=== PATIENT | female | born 2000 | race Hispanic/Latino ===

== ENCOUNTER 2023-01-09 09:28 | Outpatient (CLI) | payer BC, SELFPAY ==
--- NOTE | 2023-01-09 | ECG_ITS ---
Measurements Intervals [place] Rate: 78 P: 50 MT: 149 QRS: 101 QRSD: 88 T: 29 QT: 388 QTc: 443 Interpretive Statements SINUS RHYTHM RIGHT AXIS DEVIATION MINIMAL Q WAVES- INFERIOR LEADS BORDERLINE ECG NO PREVIOUS ECG AVAILABLE FOR COMPARISON Electronically Signed On 01-09-2023 12:06:41 CDT by Usman New D.O.
[2023-01-09 10:02] LABS: Basophils Percent Auto 0.6 % (0.2-1.2); Eosinophils Absolute Auto 0.1 K/mm3 (0-0.3); Eosinophils Percent Auto 1.4 % (0-4.4); Hematocrit 43.5 % (37.0-47.0); Hemoglobin 14.3 g/dL (12.0-15.0); Immature Granulocyte Absolute 0.01 K/mm3 (0.00-0.031); Immature Granulocyte Percent A 0.2 % (0-0.5); Lymphocytes Absolute Auto 1.74 K/mm3 (0.9-3.2); Lymphocytes Percent Auto 34.6 % (18.3-44.2); Mean Corpuscular HGB Conc 32.9 g/dl (32-36); Mean Corpuscular Hemoglobin 29.1 pg (26-34); Mean Corpuscular Volume 88.4 fl (80-100); Mean Platelet Volume 11.8 fl (7.4-10.4); Monocytes Absolute Auto 0.4 K/mm3 (0.1-0.6); Neutrophils Absolute Auto 2.8 K/mm3 (1.3-6.7); Neutrophils Percent Auto 56.2 % (45.5-73.1); Platelet Count Result 166 k/mm3 (150-375); Red Blood Count 4.92 M/mm3 (4.2-5.4); Red Cell Distribution Width 12.4 % (11.5-14.5)
[2023-01-09 10:03] LABS: Appearance Urine Clear (Clear); Bilirubin Urine Negative (Negative); Blood Urine Negative (Negative); Color Urine Yellow (Yellow); Glucose Urine UA Negative (Negative); Ketones Urine Negative (Negative); Leukocyte Esterase Ur Negative LEU/UL (Negative); Nitrate Urine Negative (Negative); Protein Urine Negative (Negative); Urobilinogen Urine 0.2 mg/dL (<2.0); pH Urine 7.5 (5.0-9.0)
[2023-01-09 10:08] LABS: Add Urine Microscopic? NO
[2023-01-09 10:20] LABS: Alanine Aminotransferase 33 U/L (6-35); Albumin Level 4.7 g/dL (3.5-5.1); Alkaline Phosphatase 49 U/L (38-126); Anion Gap 8 mmol/L (8-16); Aspartate Amino Transferase 38 U/L (14-36); Bilirubin,Total 0.5 mg/dL (0.2-1.3); Blood Urea Nitrogen 9 mg/dL (7-17); CRP < 0.5 mg/dL (<1.0); Calcium 9.2 mg/dL (8.4-10.2); Carbon Dioxide 27 mmol/L (22-30); Chloride 102 mmol/L (98-107); Estimated Glomerular Filt Rate > 60; Glucose 96 mg/dL (65-110); Potassium 4.2 mmol/L (3.4-5.0); Sodium 137 mmol/L (137-145)
[2023-01-09 10:29] LABS: Hemoglobin A1C 5.1 % (<5.7)
[2023-01-09 10:33] LABS: Beta HCG Quantitative < 2.39 mIU/ML
[2023-01-09 10:36] LABS: Iron 151 ug/dL (37-170); Rheumatoid Factor < 12.0 IU/ML (<12)
[2023-01-09 11:23] LABS: Folic Acid 13.7 ng/mL (2.76->20)
[2023-01-09 11:24] LABS: Vitamin D 25 Hydroxy 49.7 ng/mL
[2023-01-12 09:37] LABS: Anti Streptolysin O Screen <50 IU/mL (<200)
[2023-01-12 22:19] LABS: Cyclic Citrullinated Peptide <16 Units (<20)
[2023-01-14 08:13] LABS: ANA Cascade Screen Positive (Negative)
[2023-01-14 11:23] LABS: Chromatin (Nucleosomal) Ab <1.0; Chromatin Antibody Charge YES; DNA (ds) Antibody Charge YES; RNP Antibody <1.0; RNP Antibody Charge YES; Sm Antibody <1.0; Sm Antibody Charge YES; Sm/RNP Antibody <1.0; Sm/RNP Antibody Charge YES
[2023-01-16 05:36] LABS: JO1 Antibody Charge YES; Jo-1 Antibody <1.0; SCL70 Antibody Charge YES; SSA Antibody Charge YES; SSB Antibody Charge YES; Sjogren's Antibody (SS-B) <1.0
[2023-01-16 17:23] LABS: Centromere Antibody Charge YES; Centromere B Antibody 6.4; Ribosomal Antibody <1.0; Ribosomal Antibody Charge YES
== END 2023-01-09 09:29 | disposition home or self-care (01) ==
PROVIDERS: PCP Family Medicine Sports Medicine; Visit Provider Family Medicine Sports Medicine
DX: R53.83 Other fatigue (principal); R51.9 Headache, unspecified; G47.00 Insomnia, unspecified; R11.0 Nausea; R35.0 Frequency of micturition; M25.50 Pain in unspecified joint; R94.31 Abnormal electrocardiogram [ECG] [EKG]
CPT/HCPCS: 36415; 80053; 81003; 82306; 82607; 82746; 83036; 83540; 84443; 84702; 85025; 86038; 86060; 86140; 86430; 93005

== ENCOUNTER 2025-02-28 06:42 | Emergency (ER) | payer OTHER, SELFPAY ==
--- OUTSIDE RECORDS SUMMARY | 2010-12-18 19:00 | XMS_ITS | Continuity of Care Document ---
Author Organization [facility] Address [address] [place] [address] Phone Care Team Providers Care Sales Representative Gas Service Name Role Phone Conversion MD, Doctor Unavailable Unavailabl e Allergies, Adverse Reactions, Alerts Substance Reaction Status Criticality No Known Drug Allergies Other Active No I nformation Medications Medication Instructions Dosage Effective Dates (start - stop) Status Comments ZITHROMAX 200MG/5ML ML 0 DIRECTE - Active 2 tsp today, then 1 tsp q d for 4 d AEROCHAMBER PUFFS 2 DIRECTE - Activ e ALBUTEROL 90MCG PUFFS 2 Q 4HR - Active EXTENDRYL 10-2-1.25 ML 5 BID - Active AMOXICILLIN 250MG/5ML ML 10 BID - No Longer Active ORAPRED 15MG/5ML ML 10 QD - No Longer Active AMOX TR-POTASSIUM CLAVULANATE 5 BID - No Longer Active AMOXICILLIN 250MG/5ML ML 7.5 BID - No Longer Active AUGMENTIN ES-600 600-42.9/5 ML 5 BID - No Longer Active AMOXICILLIN 250MG/5ML SUSP 5 TID - No Longer Active AUGMENTIN 400-57MG/5 ML 5 BID - No Longer Active AMOXICILLIN 250MG/5ML SUSP 5 TID - No Longer Active AMOXICILLIN 250MG/5ML ML 5 TID - No Longer Active AMOXICILLIN 125MG/5ML ML 5 TID - No Longer Active Advance Directives Directive Yes / No Effective Date File Name No Information Encounters Encounter Description Practice Location Reason(s) For Visit Diagnoses Date Provider Providers Copied on Encounter [facility], [address], [place], [place], [address], tel:[phone] Conversion Department No Information 1 Conversion Doctor. [address] [facility], [place], [address], [place]. [facility], [address], [place], [place], [address], tel:[phone] [facility] No Information 5 Ryan Madera. [address] [facility], [place] [address], [place], [place], [address], . tel:[phone] [facility], [address], [place], [place], [address], [place] tel:[phone] [facility] [employer] 1 Ryan Madera. [address] [facility], [address], [place], [place], [address], [place]. tel:[phone] Family History Family Member Type Diagnosis Age At Onset No Information Immunizations Vaccine Date Status Comments 79335 - Polio_OPV_IPV administered Source : Source Unspecified 34054 - DTaP_DTP_DT_PEDS, Hib administere d Source: Source Unspecified 11975 - Pneumococcal_PCV administered Kay rce: Source Unspecified 45606 - MMR administered Source: Source Unspecified 08057 - Varicella administered Source: So urce Unspecified 06924 - Hepatitis_B administered Source: Source Unspecified 22061 - Hib administered Source: Source Unspecified 59516 - Pneumococcal_PCV administered Kay rce: Source Unspecified 09233 - DTaP_DTP_DT_PEDS administered Kay rce: Source Unspecified 71544 - DTaP_DTP_DT_PEDS administered Kay rce: Source Unspecified 50740 - Polio_OPV_IPV administered Source : Source Unspecified 57808 - Pneumococcal_PCV administered Kay rce: Source Unspecified 67022 - Hib administered Source: Source Unspecified 20653 - DTaP_DTP_DT_PEDS administered Kay rce: Source Unspecified 06219 - Hepatitis_B administered Source: Source Unspecified 97516 - Hib administered Source: Source Unspecified 20999 - Polio_OPV_IPV administered Source : Source Unspecified 87137 - Pneumococcal_PCV administered Kay rce: Source Unspecified Payers Payer name Insurance type Covered constitution party ID Authoriza tion(s) No Information Social History Type Description Quantity Date Captured Comments Sex Female Smoking Status No Information Chief Complaint And Reason For Visit No Information Reason For Referral Reason For Referral No Information History Of Present Illness Encounter Date Complaint History Of Prese nt Illness No Information Functional Status Date Functional Assessmen t No Information Instructions Date Instruction Additional Infor mation No Information Assessments Type Assessment Date No Information Patient Care Teams Name Effective Dates (start - stop) Status Members No Information
--- NOTE | ~2025-02-28 | CT_ITS ---
EXAMINATION: CT chest abdomen pelvis w con, 02/28/2025 11:35 CDT HISTORY: epigast pain; CP SOB earlier; N/V COMPARISON: No comparisons available. TECHNIQUE: CT scan of the chest, abdomen and pelvis was performed with contrast Isovue 300, 92cc injected IV. One or more of the following dose reduction techniques were used: automated exposure control, adjustment of the mA and/or kV according to patient size, use of iterative reconstruction technique. Unless otherwise stated, incidental findings do not require dedicated follow up imaging FINDINGS: CT chest: No significant coronary calcification is present ([id number]) LUNGS: Clear without consolidation, effusion, or pneumothorax. HEART AND PERICARDIUM: Within normal limits. AORTA: Normal caliber aorta. MEDIASTINUM: Unremarkable. THYROID: The thyroid is unremarkable. CT abdomen: LIVER: Unremarkable, liver contours intact, no lesions. SPLEEN: Unremarkable, no splenomegaly. KIDNEYS: Right Kidney: Unremarkable. No calculi. No hydronephrosis. Left Kidney: Unremarkable. No calculi. No hydronephrosis ADRENAL GLANDS: Unremarkable. PANCREAS: GALLBLADDER/BILIARY: Unremarkable. No biliary dilatation. STOMACH AND ESOPHAGUS: Visualized stomach and esophagus within normal limits. BOWEL/MESENTERY: Moderate fecal content. No colitis or diverticulitis. Appendix normal. Mesentery normal. Small bowel normal. RETROPERITONEUM: Unremarkable AORTA/VASCULATURE: Normal caliber aorta. FREE FLUID OR FREE AIR: Minimal free fluid.. CT pelvis: SOLID ORGANS/REPRODUCTIVE: Unremarkable. BLADDER: Within normal limits. LYMPHADENOPATHY: No lymphadenopathy. OSSEOUS STRUCTURES: No acute osseous abnormality.No suspicious lesions. OVERLYING SOFT TISSUES: Unremarkable. IMPRESSION: 1. No etiology identified to explain the patient's symptoms. Follow-up suggested if symptoms persist. Reviewed, dictated and finalized at location A. IMPRESSION: 1. No etiology identified to explain the patient's symptoms. Follow-up suggeste d if symptoms persist.
--- NOTE | ~2025-02-28 | XR_ITS ---
EXAMINATION: XR chest 1V portable COMPARISON: No comparisons available. HISTORY: cp, sob FINDINGS: The lungs are clear, no effusion. No pneumothorax. Heart is normal size. Mediastinal and hilar contours are within normal limits. Bony thorax no acute abnormality. Miscellaneous: None Impression: No acute cardiopulmonary abnormality. Reviewed, dictated and finalized at location A. Impression: No acute cardiopulmonary abnormality.
--- NOTE | ~2025-02-28 | CT_ITS ---
EXAMINATION: CT brain wo con COMPARISON: None HISTORY: headache TECHNIQUE: Axial images were obtained through the brain without IV contrast. CT scan performed using dose optimization techniques including the following automated exposure control; adjustment of mA and/or kV; use of iterative reconstruction technique. Automatic exposure control was used to reduce radiation dose. Permanent radiation dose record is archived to PACS. FINDINGS: No acute infarct or parenchymal hemorrhage. No abnormal mass or mass effect. No midline shift. No extra-axial fluid collections. No hydrocephalus. . Mastoid air cells unremarkable. Sinuses and orbits unremarkable. No acute fracture. No significant facial or scalp soft tissue swelling evident. No radiopaque foreign body is seen. Impression: 1.No acute intracranial abnormality. Reviewed, dictated and finalized at location A. Impression: 1.No acute intracranial abnormality.
--- OUTSIDE RECORDS SUMMARY | 2025-02-28 06:44 | XMS_ITS | Encounter Summary ---
Author Organization [facility] Address [address] [facility] [place] [address] Care Team Providers Care Speeder Machine Operator Name Role Phone Zafar Monsalve MD Primary Care Provider [phone] Encounter Details Date Type Department Care Team (Late st Contact Info) Description 12/17/2024 Lab Requisition [facility] - DermPath Lab [address] [facility], [place] [address] Tequila Munoz MD [address] [facility] [address] [place] [address] Social History Tobacco Use Types Packs/Day Years Used Date Smoking Tobacco: Never Smokeless Tobacco: Never Alcohol Use Standard Drinks/Week Comments Yes 1 (1 standard drink = 0.6 oz pur e alcohol) PHQ-2 Answer Date Recorded Patient Health Questionnaire-2 Score 0 09/03/2024 Comments No Sex and Gender Information Value Date Recorded Sex Assigned at Not on file 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 Gender Identity Not on file Sexual Orientation Not on file documented as of this encounter Plan of Treatment Not on file documented as of this encounter Procedures Procedure Name Priority Date/Time Associated Diagnosis Comments DERMATOPATHOLOGY Routine 12/17/2024 11:3 8 AM CDT documented in this encounter Results * DERMATOPATHOLOGY (12/17/2024 11:38 AM CDT) Case Report Dermatopathology Report Case: [id number] Authorizing Provider: Tequila Munoz MD Collected: 12/17/2024 11:38 AM Ordering Location: [facility] - Received: 12/18/2024 07:47 AM DermPath Lab Pathologist: Valeri Pang MD Specimen: Skin, left preaur 1:21 PM CDT DERMATOPATHOLOGY LABORATORY Final Diagnosis Specimen A. SKIN, left preaur: PSORIASIFORM DERMATITIS (L44.8) (see microscopic description and comment) 1:21 PM CDT DERMATOPATHOLOGY LABORATORY at 1321 CDT Clinical History Favor LE, Less PSO/IMELDA Derm 1:21 PM CDT DERMATOPATHOLOGY LABORATORY Gross Description Specimen A: Received is one formalin filled container labeled with the patient's name and designated left preaur. The specimen consists of a punch biopsy measuring 3x3x5 mm. Jar 0. 1:21 PM CDT DERMATOPATHOLOGY LABORATORY Microscopic Description Specimen A. SKIN, left preaur: There is psoriasiform hyperplasia of the epidermis with focal parakeratosis and spongiosis. There is a superficial, mainly lymphohistiocytic inflammatory infiltrate. Grocott's methenamine silver (GMS) stain is negative for fungal elements in the sections examined. IL-36 moderately stains the upper epidermis. COMMENT: The histological differential diagnosis includes early / partially treated psoriasis and a chronic eczematous dermatitis including seborrheic dermatitis. 1:21 PM CDT DERMATOPATHOLOGY LABORATORY Disclaimer An external and internal positive and negative controls are appropriate for the histochemical, immunohistochemical and immunofluorescence stain(s) in this case (if any), except where stated explicitly. The performance characteristics of the stain(s) cited in this report were developed and its performance characteristic determined by the Dermatopathology Laboratory at [facility], directed by Dr. Nu Souza. These tests need not be, and therefore are not, approved by the [place] Food and Drug Administration. The tests are used for clinical purposes. Billing Codes Specimen Charges Stain Charges 28923 1 72850 68973 1 1 07/08/202 5 1:21 PM CDT DERMATOPATHOLOGY LABORATORY Embedded Images 1:21 PM CDT DERMATOPATHOLOGY LABORATORY Pathology/Cytolo gy TISSUE SPECIMEN FROM SKIN / Unknown 12/17/2024 11:38 AM CDT 12/18/2024 7:47 AM CDT us Tequila Munoz MD LAB - PATHOLOGY/CYTOLOGY ORD ERABLES Final Result DERMATOPATHOLOGY LABORATORY [facility] - Department of Dermatology [facility] Medicine [address] [place] [address], [address] [phone] documented in this encounter Visit Diagnoses Not on filedocumented in this encounter Care Teams Speeder Machine Operator Relationship Specialty Start Date End Date Zafar Monslave MD [address] [place] [address] PCP - General Family Medicine 11/07/23 documented as of this encounter
--- OUTSIDE RECORDS SUMMARY | 2025-02-28 06:44 | XMS_ITS | Clinical Summary ---
Author Organization [facility] Address [address] [place] [address] Care Team Providers Care Optical Laboratory Manager Name Role Phone Zafar Monsalve MD Primary Care Provider [phone] Source Comments [facility],non-owned Affiliates and Associated Physician Practices is amultiple site organization consisting of ambulatory clinics and hospital sitesin [place], [place], [place] and [place]. This disclosure is being madepursuant to the Care Everywhere program and may not contain all information available regarding this patient. Last updated 18.[facility] Allergies Active Allergy Reactions Criticality Noted Date Comments Lactose GI Discomfort 04/11/2023 All dairy Medications * Be aware that medications may not be up to date on this document. Alwaysverify current medications with the patient. hydroxychloroqui ne (Plaquenil) 200 MG tablet Take 1 (one) tablet by mouth 2 times daily 180 tablet 1 11/07/2023 Active Active Problems Problem Noted Date Diagnosed Date Ankle pain 10/11/2016 Encounters Date Type Department Care Team Description 12/17/2024 Lab Requisition [facility] - DermPath Lab [address] [facility] [place] [address] Tequila Munoz MD from Last 3 Months Immunizations Immunization Administration Dates Next Due DTaP VACCINE IM (6wk-6yrs) 03/16/2004,,2000,06/26,2000 HepB Unspecified formulation 2000,04/18/20 00,2000 Human Papilloma Virus Geoff valent Vaccine 01/08/2013,03/29/2012,01/26/2012 INFLUENZA VACCINE 06/21/2018 INFLUENZA VACCINE, QUADR. (A FLURIA, FLUZONE QUADRIVALENT; 6MO+) (IIV4) 07/10/2003,05/25/2003 MENINGOCOCCAL ACWY (MCV4P) VAC IM 01/26/2012 MENINGOCOCCAL ACWY MENVEO 06/20/2017 MMR 03/16/2004,02/26/2001 Meningococcal B Recombinant 2 Dose, IM 9 PNEUMOCOCCAL PCV VACCINE 02/26/2001,01/2001,2000,04/18 POLIO,HISTORIC VACCINE 03/16/2004,2001,2000,04/18 TDAP (7yrs+) 03/16/2010 VARICELLA 03/16/2010,02/26/2001 Family History Relation Name Status Comments Father Alive Mother Alive Social History Tobacco Use Types Packs/Day Years Used Date Smoking Tobacco: Never Smokeless Tobacco: Never Tobacco Cessation:Counseling Given: Not Answered Alcohol Use Standard Drinks/Week Comments Yes 1 (1 standard drink = 0.6 oz pur e alcohol) PHQ-2 Answer Date Recorded Patient Health Questionnaire-2 Score 0 09/03/2024 Comments No Sex and Gender Information Value Date Recorded Sex Assigned at Not on file 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 Gender Identity Not on file Sexual Orientation Not on file Last Filed Vital Signs Vital Sign Reading Time Taken Comments Blood Pressure 116/86 09/03/2024 9:48 AM CDT Pulse 64 09/03/2024 9:48 AM CDT Temperature 36.1 C (97 F) 09/03/2024 9:48 AM CDT Respiratory Rate 16 09/03/2024 9:48 AM CDT Oxygen Saturation 96% 09/03/2024 9:48 AM CDT Inhaled Oxygen Concentration - - Weight 73.3 kg (161 lb 9.6 oz) 09/03/2024 9:48 A M CDT Height 165.1 cm (5' 5) 03/10/2024 3:32 PM CDT Body Mass Index 26.89 03/10/2024 3:32 PM CDT Plan of Treatment Health Maintenance Due Date Last Done Comments HIV SCREENING 02/26/2015 CHLAMYDIA/GONORRHEA SCREENING 2016 HEPATITIS C SCREENING 02/22/2018 MENINGOCOCCAL (Group B) VACCINE SHARED DECISION-MAKING (2 of 2 - Bexsero SCDM 2-dose series) 07/04/2019 01/01/2019 DTAP/TDAP/TD VACCINES (7 - Td or Tdap) 03/16/2020 03/16/2010, 03/16/2004, 06/21/2001, Additional history exists PAP SMEAR 02/26/2021 COVID-19 VACCINE ( season) 2025 10/05/2020, 09/14/2020 INFLUENZA VACCINE (#1) 2025 9, 07/10/2003, 05/25/2003 ZOSTER VACCINE (1 of 2) 02/26/2050 HEPATITIS B VACCINE Completed 2000, 2000, 2000 PNEUMOCOCCAL VACCINE Completed 02/26/2001, 2000, 2000, Additional history exists HPV VACCINE Completed 01/08/2013, 03/18, 01/26/2012 MENINGOCOCCAL GROUPS A/C/Y/W VACCINE Completed 06/20/2017, 01/26/2012 DEPRESSION SCREENING Completed 09/03/2024 HIB VACCINE Aged Out No longer eligi ble based on patient's age to complete this topic Procedures Procedure Name Priority Date/Time Associated Diagnosis Comments DERMATOPATHOLOGY Routine 12/17/2024 11:3 8 AM CDT from Last 3 Months Results * DERMATOPATHOLOGY (12/17/2024 11:38 AM CDT) Case Report Dermatopathology Report Case: [id number] Authorizing Provider: Tequila Munoz MD Collected: 12/17/2024 11:38 AM Ordering Location: [facility] - Received: 12/18/2024 07:47 [...] characteristic determined by the Dermatopathology Laboratory at [facility], directed by Dr. Nu Souza. These tests need not be, and therefore are not, approved by the [place] Food and Drug Administration. The tests are used for clinical purposes. Billing Codes Specimen Charges Stain Charges 28993 1 30384 55953 1 1 1:21 PM CDT DERMATOPATHOLOGY LABORATORY Embedded Images 1:21 PM CDT DERMATOPATHOLOGY LABORATORY Pathology/Cytolo gy TISSUE SPECIMEN FROM SKIN / Unknown 12/17/2024 11:38 AM CDT 12/18/2024 7:47 AM CDT us Tequila Munoz MD LAB - PATHOLOGY/CYTOLOGY ORD ERABLES Final Result DERMATOPATHOLOGY LABORATORY [facility] - Department of Dermatology [facility] [address] [facility] 3rd [place] [address], [facility] [phone] from Last 3 Months Insurance [facility] Care Teams Optical Laboratory Manager Relationship Specialty Start Date End Date Zafar Monsalve MD [address] [place] [address] PCP - General Family Medicine 11/07/23
--- OUTSIDE RECORDS SUMMARY | 2025-02-28 06:44 | XMS_ITS | Patient Health Record ---
Author Organization [facility] Address [address] [place]. [address] [place] [address] Care Team Providers Care Manager Validation Name Role Phone Zafar Monsalve MD Primary Care Provider Salena Whitfield Unavailable [phone] Allergies No Known Allergies Results Component Value Reference Range Notes Pathology Report Reviewed date:09/10/2024 09:32:11 AM Interpretation: Performing Lab: Notes/Report: DIAGNOSES A. Small Bowel , Biopsy: -Enteric mucosa with no diagnostic abnormality. -Normal villous architecture; no evidence of Celiac sprue. -Alcian blue/PAS stain to identify gastric foveolar metaplasia and Whipple's disease is negative; no parasites are seen. B. Random Gastric , Biopsy: -Mild chronic inactive gastritis. -Alcian blue/PAS stain is negative for intestinal metaplasia. -Giemsa stain is negative for Helicobacter pylori organisms; confirmed with immunohistochemical stain. CLINICAL HISTORY Epigastric pain. Right upper quadrant pain. Bloating. GROSSING DESCRIPTION A. The specimen is received in a Formalin-filled container labeled with the patient's name and designated Small Bowel It contains multiple fragments of stallworth tissue that measure 2x1x1 to 2x1x1 mm. The specimen was entirely submitted into a single cassette for processing. B. The specimen is received in a Formalin-filled container labeled with the patient's name and designated Random Gastric It contains multiple fragments of stallworth tissue that [id number] to 5x2x1 mm. The specimen was entirely submitted into a single cassette for processing. MICROSCOPIC DESCRIPTION Complete 100 microscopic examination is performed. The findings are included in the diagnosis rendered. Specimens A and B were evaluated with H&E stain. Specimen B was evaluated with Rapid Giemsa stain. Specimens A and B were evaluated with Alcian Blue PAS stain. Specimen B was evaluated with Helicobacter Pylori immunohistochemistry stain with adequate positive controls. Textual Pathology Report SEE NOTES Reason For Referral No Information Medications Medication SIG (Take, Route, Fr equency, Duration) Notes Start Date End Date Status rifAXIMin 550 MG 1 tablet Orally 3 ti mes a day for 10 days 11/13/2024 Active Social History Tobacco Use: Social History Observation Description Date Details (start date - stop date) Never Smoker NA - NA Tobacco Control (Standard) Question Answer Notes Tobacco use: Nonsmoker Vital Signs Height 65 in 10/28/2024 Weight 160 lbs 10/28/2024 BMI 26.62 kg/m2 10/28/2024 Procedures Procedure Date Ordered Date Performed Result Body Sit e Initiate SIBO 10/28/2024 N/A SIBO Breath Test 11/12/2024 11/12/2024 N/A Encounters Encounter Location Date Provider Diagnosis [facility] [address] [place] [address] 09/04/2024 Salena Patrick Epigastric abdominal pain R10.13 ; Dyspepsia R10.13 and Duodenitis without bleeding K29.80 [facility], [address] [place] [address] 10/28/2024 Salena Patrick Bloating R14.0 and Abdominal pain R10.9 [facility], [address] [place] [address] 11/12/2024 Salena Patrick Bloating R14.0 [facility], [address] [place] [address] 08/28/2024 Salena Patrick [facility], [address] [place] [address] 09/04/2024 Salena Patrick [facility], [address] [place] [address] 09/10/2024 Salena Patrick [facility] [address] [place] [address] [place] [address] 11/12/2024 Salena Patrick 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 Gomez [address] [place] [phone] 11/13/2024 Salena Patrick Assessments Encounter Date Diagnosis (ICD Code) Assessment Notes Treatment Notes Treatment Clinical Notes Section Notes 09/04/2024 Dyspepsia (ICD-10 - R10.13) 09/04/2024 Epigastric abdominal pain (ICD-10 - R10.13) 10/28/2024 Abdominal pain (ICD-10 - R10.9) 1. Bloating, sour stomach- Has been going on for several months at this point. Had a relatively unremarkable upper endoscopy except for some mild duodenitis with negative biopsies, and mild chronic inactive gastritis on gastric biopsies. Symptoms did not improve with trials of PPI and sucralfate. Will test for SIBO. Discussed also a trial of IBgard, as well as handout given for high flatulence foods today. Of note, she states she is having regular bowel movements, with some mild postprandial urgency. 10/28/2024 Bloating (ICD-10 - R14.0) 1. Bloating, sour stomach- Has been going on for several months at this point. Had a relatively unremarkable upper endoscopy except for some mild duodenitis with negative biopsies, and mild chronic inactive gastritis on gastric biopsies. Symptoms did not improve with trials of PPI and sucralfate. Will test for SIBO. Discussed also a trial of IBgard, as well as handout given for high flatulence foods today. Of note, she states she is having regular bowel movements, with some mild postprandial urgency. 11/12/2024 Bloating (ICD-10 - R14.0) 11/12/2024 Small intestinal bacterial overgrowth (SIBO) (ICD-10 - K63.8219) 09/04/2024 Duodenitis without bleeding (ICD-10 - K29.80) 10/28/2024 Other 1. Check SIBO. 2. Trial of IBgard. 3. Handout given of high flatulence foods today. 4. If symptoms are persistent and she test negative for SIBO, would consider fructose breath testing. 1. Bloating, sour stomach- Has been going on for several months at this point. Had a relatively unremarkable upper endoscopy except for some mild duodenitis with negative biopsies, and mild chronic inactive gastritis on gastric biopsies. Symptoms did not improve with trials of PPI and sucralfate. Will test for SIBO. Discussed also a trial of IBgard, as well as handout given for high flatulence foods today. Of note, she states she is having regular bowel movements, with some mild postprandial urgency. Plan Of Treatment Pending Test Test Name Order Date Initiate SIBO 10/28/2024 Insurance Providers Payer Name Payer Address Payer Phone Subscriber Number Group Number Insured Name Patient Relationship to Insured Coverage Start Date Coverage End Date [facility] Choice/c hoice Plus E2 [address] [address] [place] [address] [id number] Idalmis Rebolledo Self - patient is the insured Blue Access Choice PPO E2 [address] [place] [address] [id number] Viki Rebolledo Child - Insured has Financial Responsibility Medical (General) History Surgical History Surgery Date(Month/Year) EGD 08/2024
--- NOTE | 2025-02-28 06:49 | ECG_ITS ---
Test Date: 2025-02-28 07:05:51 Measurements Intervals [place] Rate: 93 P: 43 ID: 169 QRS: 95 QRSD: 85 T: 30 QT: 356 QTc: 443 Interpretive Statements SINUS RHYTHM BORDERLINE RIGHT AXIS DEVIATION [QRS AXIS > 90] ABNORMAL ECG No previous ECG available for comparison Electronically Signed On 02-28-2025 12:23:32 CDT by Franki Mercado M.D.
[2025-02-28 06:54] VITALS: BP 132/92; PULSE 84; RESP 16; TEMP 36.9; O2SAT 99
[2025-02-28 06:57] LABS: Hematocrit 45.9 % (37.0-47.0); Hemoglobin 15.3 g/dL (12.0-15.0); Immature Granulocyte Percent A 0.2 % (0-0.5); Lymphocytes Absolute Auto 2.15 K/mm3 (0.9-3.2); Mean Corpuscular HGB Conc 33.3 g/dl (32-36); Mean Corpuscular Hemoglobin 29.0 pg (26-34); Mean Corpuscular Volume 86.9 fl (80-100); Nucleated Red Blood Cells Absolute Auto 0.000 K/mm3 (0.0-0.012); Nucleated Red Blood Cells Perc 0.0 % (0.0-0.2); Platelet Count Result 218 k/mm3 (150-375); Red Blood Count 5.28 M/mm3 (4.2-5.4); White Blood Count 5.7 K/mm3 (4.5-10.0)
[2025-02-28 07:05] VITALS: BP 113/80; PULSE 94; RESP 18; O2SAT 100
[2025-02-28 07:17] LABS: Alanine Aminotransferase 19 U/L (6-35); Albumin Level 5.3 g/dL (3.5-5.1); Alkaline Phosphatase 49 U/L (38-126); Anion Gap 13 mmol/L (4-12); Aspartate Amino Transferase 28 U/L (14-36); Bilirubin,Total 0.4 mg/dL (0.2-1.3); Blood Urea Nitrogen 9 mg/dL (7-17); Calcium 9.5 mg/dL (8.4-10.2); Carbon Dioxide 24 mmol/L (22-30); Chloride 103 mmol/L (98-107); Estimated CRCL calculation 123 ml/min; Estimated Glomerular Filt Rate > 60; Glucose 103 mg/dL (65-110); Lipase 41 U/L (23-300); Potassium 3.9 mmol/L (3.4-5.0); Sodium 140 mmol/L (137-145); Total Protein 8.8 g/dL (6.3-8.2)
[2025-02-28 07:19] LABS: BEDSIDEPREGUCG Negative (Negative)
[2025-02-28 07:25] LABS: Add Urine Microscopic? YES; Appearance Urine Clear (Clear); Glucose Urine UA Negative (Negative); Leukocyte Esterase Ur Negative LEU/UL (Negative); Nitrate Urine Negative (Negative); Non Pathogenic Casts 0-2; Specific Grav Ur 1.021 (1.001-1.035)
[2025-02-28 08:23] VITALS: BP 109/81; PULSE 82; RESP 20; O2SAT 99
--- NOTE | 2025-02-28 08:43 | ED_ITS ---
HPI - Nausea/Vomiting/Diarrhea General Chief complaint: Nausea/Vomiting/Diarrhea Stated complaint: goodman now vomit blood Time Seen by Provider: 02/28/25 08:08 Source: patient and family (Father, and fiancee) Mode of arrival: ambulatory Limitations: no limitations History of Present Illness HPI Narrative: Patient presents with report of nausea beginning 24 hours ago. Starting at 4:00 a.m., she developed dry heaving that then became emesis including hematemesis. She denies any hemoptysis. This was associated with chest pain and shortness of breath. Last evening she took 400 mg of ibuprofen. Denies any edema. Denies any previous abdominal surgeries. Has a history of lupus but not currently on any medications for this. Denies any recent steroids, heavy NSAID usage other than what was described above. No anticoagulation. She has been having epigastric abdominal pain and general GI issues for a while for which she sees a director community health nursing but does officially have any diagnosis. No history of DVT or PE. Drinks alcohol rarely. No underlying respiratory conditions. Previously saw a lens dotter for tachycardia but does not follow with 1 regularly. She notes that she had an EGD performed in the spring in [place] and there was a white coating noted in small intestine for which she had been on an antibiotic, unknown which. Cardiac risk factors HTN: No HLD: No DM: No Obese: No Smoker: No Personal history SD/TIA/CVA: No Fam Hx SD in first degree relative <65yo: No Related Data Home Medications ?Medication ?Instructions ?Recorded ?Confirmed ?Last Taken ?Type spironolactone 100 mg tablet 100 mg PO DAILY 12/09/19 12/09/20 Unknown History Allergies Allergy/AdvReac Type Severity Reaction Status Date / Time No Known Allergies Allergy Verified 02/28/25 08:24 [facility] Past Medical History Medical History Lupus Acne Surgical History Surgical History Hx of esophagogastroduodenoscopy 2024 [place] teeth removed Family History Family History Father Family history of hypercholesterolemia Hypertension Social History Social History Smoking status: Never smoker Alcohol intake: current Alcohol use details: rare Exam 2 Narrative: GENERAL: Well-appearing, well-nourished, and in no acute distress. HEAD: Normocephalic, atraumatic. EYES: Non injected, non icteric ENT: Nares clear, no rhinorrhea or epistaxis. Gross auditory acuity intact. NECK: Supple. No meningismus. CHEST: Speaking in full sentences. No respiratory distress. Lungs clear to auscultation bilaterally without appreciable wheezes or crackles. HEART: Regular rate and rhythm. . ABDOMEN: Soft, nondistended. No rigidity or guarding. Not peritoneal. No tenderness to palpation throughout. EXTREMITIES: Normal range of motion. No lower extremity edema. MARY: Normal rectal tone. Normal appearing stool on gloved lubricated finger. No significant stool burden in rectal vault. FOBT/guiaic negative. SKIN: Warm, dry, no rash. NEURO: No focal deficits. Alert and oriented. Answering questions. Following commands. Normal speech without aphasia or dysarthria. PSYCH: Normal mood and affect. Course Vital Signs Vital signs: Vital Signs Temperature 98.4 F 02/28/25 06:54 Pulse Rate 84 02/28/25 06:54 Respiratory Rate 16 02/28/25 06:54 Blood Pressure 132/92 H 02/28/25 06:54 Pulse Oximetry 99 02/28/25 06:54 Temperature 98.4 F 02/28/25 06:54 Pulse Rate 71 02/28/25 13:17 Respiratory Rate 18 02/28/25 13:17 Blood Pressure 131/94 H 02/28/25 13:17 Pulse Oximetry 97 02/28/25 13:17 MDM - Nausea/Vomiting/Diarrhea MDM Narrative Medical decision making narrative: 25-year-old patient presents with report of nausea beginning 24 hours ago. Starting at 4:00 a.m. she developed dry heaves and emesis which included some bloody emesis. Also headache, chest pain, shortness of breath. History of lupus. In the emergency department she is afebrile with vital signs that initially show mild elevation of diastolic blood pressure. Repeat improved without interval intervention. Patient with benign physical exam. Ondansetron and famotidine ordered initially. Possible degree of hemoconcentration. 500 cc IV fluids ordered. Urinalysis with sterile pyuria. HEART SCORE History 2 highly suspicious 1 moderately suspicious 0 slightly suspicious History score [address] depression/elevation not due to LBBB, LVH, or digoxin [address] depression but LBBB, LVH, nonspecific repolarization changes 0 normal ECG score 0 Age 2 >/= 65 1 45-64 0 <45 Age score 0 Risk factors (HTN, hypercholesterolemia, DM, obesity with BMI >30, current smoker or cessation </=3mo), positive fam hx with parent or sibling with CVD before age 65, atherosclerotic disease (prior SD, PCI/CABG, CVA/TIA, or peripheral arterial disease) 2 >/= 3 risk factors or history of atherosclerotic dz 1 - 1-2 risk factors 0 no known risk factors Risk factor score 0 Initial Troponin 2 >3 times normal limit 1 1-3 times normal limit 0 less than or equal to normal limit Troponin score 0 Total HEART Score 0 Forrest-Blatchford bleeding score: Based on patient's Hgb, BUN, initial SBP, sex, heart rate, presence/absence of melena, syncope, hepatic disease, cardiac failure 0?points A GBS of 0 is a ?Low Risk? GI bleed, and is highly sensitive (99.6% in a 2007 retrospective study) for predicting which patients did not require any ?medical intervention?: blood transfusion, endoscopy, or surgery. This was confirmed in a 2009 Lanc study where patients with a score of 0 were actually discharged and had no GI bleeding mortality at 6 month followup = D-dimer normal. Will not pursue further workup for PE. Viral panel negative. Repeat troponin unchanged. Patient given headache cocktail of Toradol, Compazine, diphenhydramine given She is reassessed and reports her chest pain shortness of breath have resolved but she continues to have a headache and epigastric pain. Will obtain CT noncontrast of the brain and CT chest abdomen and pelvis with contrast. Morphine and GI cocktail ordered. Patient requesting something to drink. PO challenges. Imaging unremarkable as below. Will give Bentyl for abdominal pain and magnesium for headache. In sum, This patient presents with chest and abdominal pain of unclear etiology. A CT scan was performed to evaluate for potential causes, however, neither the clinical exam nor the CT has identified an emergent etiology. Specifically, given the benign exam, the laboratory studies, and unremarkable CT, I have a very low suspicion for life threatening disease. I indicated the need to follow- up as noted on the discharge instructions, and return to the Emergency Department immediately if the pain worsens, develops fever, persistent and uncontrolled vomiting, or for any new symptoms or concerns. Discharged with Rx for OTC analgesic medications, Zofran, and Bentyl. Differential Diagnosis Differential diagnosis: Likely traveler's diarrhea, food poisoning, gastroenteritis, drug-induced nausea and vomiting, dehydration and other (Pancreatitis; ACS; pneumonia; ; PE; upper GI bleed) Lab Data Attestation: I reviewed the patient's lab results. Lab results narrative: test negative CMP without marked abnormalities. CBC without marked abnormalities. No leukocytosis. Mild elevation of hemoglobin hematocrit is within normal limits. 02/28/25 06:51 02/28/25 06:51 Labs: Lab Results 02/28/25 02/28/25 02/28/25 Range/Units 06:51 07:13 07:17 WBC 5.7 (4.5-10.0) K/mm3 RBC 5.28 (4.2-5.4) M/mm3 Hgb 15.3 H (12.0-15.0) g/dL Hct 45.9 (37.0-47.0) % MCV 86.9 (80-100) fl MCH 29.0 (26-34) pg MCHC 33.3 (32-36) g/dl RDW 12.3 (11.5-14.5) % Plt Count 218 (150-375) k/mm3 MPV 11.2 H (7.4-10.4) fl Immature Gran % (Auto) 0.2 (0-0.5) % Neut % (Auto) 53.9 (45.5-73.1) % Lymph % (Auto) 37.9 (18.3-44.2) % [place] % (Auto) 7.0 (2.6-8.5) % Eos % (Auto) 0.5 (0-4.4) % Baso % (Auto) 0.5 (0.2-1.2) % Lymph # (Auto) 2.15 (0.9-3.2) K/mm3 [place] # (Auto) 0.4 (0.1-0.6) K/mm3 Eos # (Auto) 0.0 (0-0.3) K/mm3 Baso # (Auto) 0.0 (0.0-0.1) K/mm3 Abs Immat Gran (auto) 0.01 (0.00-0.031) K/mm3 Absolute Neuts (auto) 3.1 (1.3-6.7) K/mm3 Absolute Nucleated RBC 0.000 (0.0-0.012) K/mm3 Nucleated RBC % 0.0 (0.0-0.2) % D-Dimer < 0.27 (<0.48) ug/mL Sodium 140 (137-145) mmol/L Potassium 3.9 (3.4-5.0) mmol/L Chloride 103 (98-107) mmol/L Carbon Dioxide 24 (22-30) mmol/L Anion Gap 13 H (4-12) mmol/L BUN 9 (7-17) mg/dL Creatinine 0.67 L (0.7-1.0) mg/dL Estim Creat Clear Calc 123 ml/min Estimated GFR > 60 (59 - ) Glucose 103 (65-110) mg/dL Calcium 9.5 (8.4-10.2) mg/dL Total Bilirubin 0.4 (0.2-1.3) mg/dL AST 28 (14-36) U/L ALT 19 (6-35) U/L Alkaline Phosphatase 49 (38-126) U/L Troponin I 0.032 (0.000-0.034) ng/mL NT-Pro-B Natriuret Pep 55 (19.9-100) pg/mL Total Protein 8.8 H (6.3-8.2) g/dL Albumin 5.3 H (3.5-5.1) g/dL Lipase 41 (23-300) U/L Urine Color Yellow (Yellow) Urine Appearance Clear (Clear) Urine pH 8.0 (5.0-9.0) Ur Specific [place] 1.021 (1.001-1.035) Urine Protein Trace (Negative) mg/dL Urine Glucose (UA) Negative (Negative) mg/dL Urine Ketones Negative (Negative) mg/dL Ur Blood (Man) Negative (Negative) Urine Nitrate Negative (Negative) Urine Bilirubin Negative (Negative) Urine Urobilinogen 0.2 (<2.0) mg/dL Leukocyte Esterase Rfl Negative (Negative) TORIN/UL Urine RBC 0-2 (0-2) /hpf Urine WBC 6-10 H (0-3) /hpf Ur Squamous Epith Cells Moderate (Few) /hpf Urine Bacteria Rare /hpf Urine Casts 0-2 POC Urine HCG, Qual Negative (Negative) Influenza A (RT-PCR) (Negative) Influenza B (RT-PCR) (Negative) RSV (RT-PCR) (Negative) SARS-CoV-2 RNA (RT-PCR) (Negative) 02/28/25 02/28/25 Range/Units 09:08 09:53 WBC (4.5-10.0) K/mm3 RBC (4.2-5.4) M/mm3 Hgb (12.0-15.0) g/dL Hct (37.0-47.0) % MCV (80-100) fl MCH (26-34) pg MCHC (32-36) g/dl RDW (11.5-14.5) % Plt Count (150-375) k/mm3 MPV (7.4-10.4) fl Immature Gran % (Auto) (0-0.5) % Neut % (Auto) (45.5-73.1) % Lymph % (Auto) (18.3-44.2) % [place] % (Auto) (2.6-8.5) % Eos % (Auto) (0-4.4) % Baso % (Auto) (0.2-1.2) % Lymph # (Auto) (0.9-3.2) K/mm3 [place] # (Auto) (0.1-0.6) K/mm3 Eos # (Auto) (0-0.3) K/mm3 Baso # (Auto) (0.0-0.1) K/mm3 Abs Immat Gran (auto) (0.00-0.031) K/mm3 Absolute Neuts (auto) (1.3-6.7) K/mm3 Absolute Nucleated RBC (0.0-0.012) K/mm3 Nucleated RBC % (0.0-0.2) % D-Dimer (<0.48) ug/mL Sodium (137-145) mmol/L Potassium (3.4-5.0) mmol/L Chloride (98-107) mmol/L Carbon Dioxide (22-30) mmol/L Anion Gap (4-12) mmol/L BUN (7-17) mg/dL Creatinine (0.7-1.0) mg/dL Estim Creat Clear Calc ml/min Estimated GFR (59 - ) Glucose (65-110) mg/dL Calcium (8.4-10.2) mg/dL Total Bilirubin (0.2-1.3) mg/dL AST (14-36) U/L ALT (6-35) U/L Alkaline Phosphatase (38-126) U/L Troponin I 0.032 (0.000-0.034) ng/mL NT-Pro-B Natriuret Pep (19.9-100) pg/mL Total Protein (6.3-8.2) g/dL Albumin (3.5-5.1) g/dL Lipase (23-300) U/L Urine Color (Yellow) Urine Appearance (Clear) Urine pH (5.0-9.0) Ur Specific [place] (1.001-1.035) Urine Protein (Negative) mg/dL Urine Glucose (UA) (Negative) mg/dL Urine Ketones (Negative) mg/dL Ur Blood (Man) (Negative) Urine Nitrate (Negative) Urine Bilirubin (Negative) Urine Urobilinogen (<2.0) mg/dL Leukocyte Esterase Rfl (Negative) TORIN/UL Urine RBC (0-2) /hpf Urine WBC (0-3) /hpf Ur Squamous Epith Cells (Few) /hpf Urine Bacteria /hpf Urine Casts POC Urine HCG, Qual (Negative) Influenza A (RT-PCR) Negative (Negative) Influenza B (RT-PCR) Negative (Negative) RSV (RT-PCR) Negative (Negative) SARS-CoV-2 RNA (RT-PCR) Negative (Negative) Imaging Data Radiologist's impression: Impressions Chest X-Ray 02/28/25 10:58 Impression: No acute cardiopulmonary abnormality. Head CT 02/28/25 11:51 Impression: 1.No acute intracranial abnormality. Chest/Abdomen/Pelvis CT 02/28/25 12:27 IMPRESSION: 1. No etiology identified to explain the patient's symptoms. Follow-up suggested if symptoms persist. ECG Data EKG #1: Attestation: I personally reviewed and interpreted this ECG as follows: ECG completion date: 02/28/25 ECG completion time: 07:05 Interpretation: Normal sinus rhythm at a rate of 93 beats per minute. MN interval 169. QRS 85. QT/QTC 356/443. Good R-wave progression across the precordial leads. No T- wave inversions. Normal axis. EKG #2: Attestation: I personally reviewed and interpreted this ECG as follows: ECG completion date: 02/28/25 ECG completion time: 09:56 Interpretation: Normal sinus rhythm at a rate of 87 beats per minute. MN interval 159. QRS 85. QT/QTC 375/453. Good R-wave progression across the precordial leads. T-wave inversion in 3 but upright in contiguous inferior leads. No other T-wave inversions. Discharge Plan Discharge Clinical Impression: Nausea & vomiting, Sterile pyuria, Chest pain, Shortness of breath, Headache, Epigastric abdominal pain, Hematemesis Patient Disposition: Home Condition: Stable Instructions: Antibiotic Form, Chest Pain (DC), Acute Headache (ED), Acute Nausea and Vomiting (DC), Epigastric Pain (ED), Hematemesis (ED), Shortness of Breath (ED) Additional Instructions: Follow-up with primary care physician as well as your director community health nursing. Acetaminophen/Tylenol (maximum 4000 mg per day) is safe to take with NSAIDs (ibuprofen/Motrin) for pain relief. If nausea and vomiting return, oral disintegrating tablets of Zofran have been prescribed. Bentyl/dicyclomine works on the smooth muscle of the GI tract and may help as well. Return to the Emergency Department immediately if the pain worsens, develops fever, persistent and uncontrolled vomiting, or for any new symptoms or concerns. Patient Language: Vietnamese Prescriptions: New ondansetron 4 mg tablet,disintegrating 4 mg PO Q8H PRN (Reason: nausea and vomiting) Qty: 7 0RF ibuprofen 600 mg tablet 600 mg PO TID PRN (Reason: pain) Qty: 30 0RF acetaminophen 500 mg capsule 1,000 mg PO Q6H PRN (Reason: pain) Qty: 30 0RF dicyclomine 20 mg tablet 20 mg PO BID Qty: 20 0RF No Action spironolactone 100 mg tablet 100 mg PO DAILY norgestimate-ethinyl estradiol [Aty-Dh-Vshwpbfc] 0.18/0.215/0.25 mg-25 mcg tablet See Rx Instructions .ROUTE .COMPLEX Qty: 84 0RF Dose Instruction: TAKE 1 TABLET BY MOUTH DAILY Rx Instructions: TAKE 1 TABLET BY MOUTH DAILY Follow-up/Referrals: Gricel,Zafar Bailey MD [Primary Care Provider, Unknown] Stand Alone Forms: Work/School Release IP Time of Disposition: 13:33
[2025-02-28] MEDS: ONDANSETRON INJ 4 MG/2 ML VIAL IV PUSH (09:00)
[2025-02-28] MEDS: FAMOTIDINE 20 MG/2 ML VIAL IV PUSH (09:04)
[2025-02-28] MEDS: ACETAMINOPHEN 500 MG TABLET 1000 MG PO (09:07)
[2025-02-28] MEDS: SODIUM CHLORIDE 0.9% IV 500 ML 999 ML IV CONT (09:08)
[2025-02-28 09:27] LABS: NT Pro B Type Natriuretic Pept 55 pg/mL (19.9-100); Troponin I 0.032 ng/mL (0.000-0.034)
--- NOTE | 2025-02-28 09:47 | ECG_ITS ---
Test Date: 2025-02-28 09:56:00 Measurements Intervals [place] Rate: 87 P: 39 SD: 159 QRS: 95 QRSD: 85 T: 19 QT: 375 QTc: 453 Interpretive Statements SINUS RHYTHM BORDERLINE RIGHT AXIS DEVIATION [QRS AXIS > 90] ABNORMAL ECG Compared to ECG 02/28/2025 07:05:51 No significant changes Electronically Signed On 02-28-2025 12:25:10 CDT by Franki Mercado M.D.
[2025-02-28 09:48] LABS: Influenza A QL RT-PCR Negative (Negative); Influenza B QL RT-PCR Negative (Negative); RSV RNA, RT-PCR Negative (Negative); SARS-CoV-2 RNA PCR Negative (Negative)
[2025-02-28] MEDS: PROCHLORPERAZINE EDISYLATE 10 MG/2 ML VIAL 5 MG IV PUSH (10:20)
[2025-02-28] MEDS: KETOROLAC 15 MG/ML VIAL (*BKC) IV PUSH (10:20)
[2025-02-28 10:21] LABS: Troponin I 0.032 ng/mL (0.000-0.034)
[2025-02-28 11:12] VITALS: BP 109/69; PULSE 80; RESP 21; O2SAT 100
[2025-02-28] MEDS: MORPHINE SULFATE (*CRX) 4 MG/ML INJ IV PUSH (11:25)
[2025-02-28] MEDS: BELLADONNA ALK/PHENOB ELIX 10 ML, MAG HYDROX/ALUMINUM HYD/SIMETH 30 ML, LIDOCAINE 2% VI... PO (11:27)
[2025-02-28 12:19] VITALS: BP 109/73; PULSE 91; RESP 15; O2SAT 100
[2025-02-28] MEDS: DICYCLOMINE HCL INJ 20 MG/2 ML VIAL IM (13:13)
[2025-02-28] MEDS: MAGNESIUM OXIDE 400 MG TABLET PO (13:14)
[2025-02-28 13:17] VITALS: BP 131/94; PULSE 71; RESP 18; O2SAT 97
== END 2025-02-28 13:49 | disposition home or self-care (01) ==
PROVIDERS: Emergency Medicine; Emergency Provider Student in an Organized Health Care Education/Training Program; PCP Family Medicine
DX: R82.81 Pyuria (principal); R07.9 Chest pain, unspecified; R06.02 Shortness of breath; R51.9 Headache, unspecified; R10.13 Epigastric pain; R11.2 Nausea with vomiting, unspecified; Z20.822 Contact with and (suspected) exposure to COVID-19
CPT/HCPCS: 36415; 70450; 71045; 71260; 74177; 80053; 81001; 81025; 83690; 83880; 84484; 85025; 85380; 87637; 93005; 96361; 96372; 96374; 96375; 99284; A9270; J0500; J0780; J1200; J1885; J2270; J2405; J7040; Q9967